=== PATIENT | female | born 1940 | race African-American/Black ===

== ENCOUNTER 2019-03-27 15:39 | Inpatient (IN) | payer MEDICARE, OTHER ==
--- NOTE | 2019-03-27 16:31 | ED Physician Chart ---
ED Chief Complaint/HPI - Patient Information Date Seen:: 03/27/19 Time Seen:: 15:40 Chief Complaint:: AMS History of Present Illness:: onset x 2 days of AMS, ALOC, and fever; no report of trauma, H/As, S/T, neck pain, C/P, SOB, Abd. Pain, A/N/V/D/C, chills, SIs, or urinary s/s Allergies:: Allergies Allergy/AdvReac Type Severity Reaction Status Date / Time No Known Allergies Allergy Verified 03/27/19 15:56 Vitals:: Vital Signs - 8 hr 03/27/19 15:41 Temp 97.8 F HR 88 RR 18 BP 137/82 O2 Sat % 100 Historian:: Patient, EMS Review:: Nurse's Note Reviewed, Old Chart Reviewed, EMS run form Reviewed ED Review of Systems - Review of Systems General/Constitutional: No fever, No chills, No weight loss, No weakness, No diaphoresis, No edema, No loss of appetite Skin: No skin lesions, No rash, No bruising Head: No headache, No light-headedness Eyes: No loss of vision, No pain, No diplopia ENT: No earache, No nasal drainage, No sore throat, No tinnitus Neck: No neck pain, No swelling, No thyromegaly, No stiffness, No mass noted Cardio Vascular: No chest pain, No palpitations, No PND, No orthopnea, No edema Pulmonary: No SOB, No cough, No sputum, No wheezing GI: No nausea, No vomiting, No diarrhea, No pain, No melena, No hematochezia, No constipation, No hematemesis G/U: No dysuria, No frequency, No hematuria, No nacturia Engagement Quality Consultant: No vaginal discharge, No abnormal vaginal bleed, No contraction Musculoskeletal: No bone or joint pain, No back pain, No muscle pain Endocrine: No polyuria, No polydipsia Psychiatric: Prior psych history, Depression, Anxiety, No suicidal ideation, No homicidal ideation, No auditory hallucination, No visual hallucination Hematopoietic: No bruising, No lymphadenopathy Allergic/Immuno: No urticaria, No angioedema Neurological: No syncope, No focal symptoms, No weakness, No paresthesia, No headache, No seizure, No dizziness, Confusion, No vertigo ED Past Medical History - Past Medical History Obtainable: Yes Past Medical History: HTN, DM, Dyslipidemia, Thyroid disorder, Dementia Family History: Diabetes Melitus, HTN Social History: Non Smoker, No Alcohol, No Drug Use, , Care Facility Surgical History: None Psychiatricy History: Depression, Dementia Medication: Reviewed Family Medical History - Family Member Mother History Unknown: Yes ED Physical Exam - Physical Examination General/Constitutional: Awake, Well-developed, well-nourished, Alert, No distress, GCS 15, Non-toxic appearing, Ambulatory Head: Atraumatic Eyes: Lids, conjuctiva normal, PERRL, EOMI Skin: Nl inspection, No rash, No skin lesions, No ecchymosis, Well hydrated, No lymphadenopathy ENMT: External ears, nose nl, TM canals nl, Nasal exam nl, Lips, teeth, gums nl , Oropharynx nl, Tonsils nl Neck: Nontender, Full ROM w/o pain, No JVD, No nuchal rigidity, No bruit, No mass, No stridor Respiratory: Nl effort/Exclusion, Clear to Auscultation, No Wheeze/Rhonchi/Rales Cardio Vascular: RRR, No murmur, gallop, rubs, NL S1 S2, Carotid/Femoral/Distal pulses equal bilaterally GI: No tenderness/rebounding/guarding, No organomegaly, No hernia, Normal BS's, Nondistended, No mass/bruits, No McBurney tenderness, Rectum exam nl : No CVA tenderness Extremities: No tenderness or effusion, Full ROM, normal strength in all extremities, No edema, Normal digits & nails Neuro/Psych: Alert/oriented, DTR's symmetric, Normal sensory exam, Normal motor strength, Judgement/insight normal, Mood normal, Normal gait, No focal deficits Misc: Normal back, No paraspinal tenderness ED Labs/Radiology/EKG Results - Lab Results Comments:: Reviewed - Radiology Results Comments:: CXR: NAD - EKG Interpretations EKG Time:: 16:41 Rate & Rhythm: 88; NSR Comments:: LAE; non-specific st-t changes ED Septic Shock - . Is Septic Shock (SBP<90, OR Lactate>4 mmol\L) present?: No - <6hrs of presentation: Vital Signs: Vital Signs - 8 hr 03/27/19 15:41 Temp 97.8 F HR 88 RR 18 BP 137/82 O2 Sat % 100 ED Reassessment (Disposition) - Reassessment Reassessment Condition:: Improved - Diagnosis Diagnosis:: ALOC; AMS; Elevated Lactic Acid; Lactic Acidosis; Hypercalcemia; Sepsis; Pancreatitis - Aftercare/Follow up Instructions Aftercare/Follow-Up Instructions:: Counseled pt regarding lab results/diagnosis & need follow up, Counseled pt & family regarding lab results/diagnosis & need follow up - Patient Disposition Discharge/Transfer:: Acute Care w/in this hosp Accepting Physician:: Dr. Cervantes Time Called:: 254 Time Responded:: 17:30 Admitted to:: Telemetry Spoke to:: Dr. Cervantes Admitting Medical Physician:: Dr. Cervantes Condition at Disposition:: Stable, Improved
[2019-03-27 16:44] LABS: HEMATOCRIT 34.2 % (41.0-60); HEMOGLOBIN 11.4 gm/dL (12-16); MEAN CELL VOLUME 87.2 fl (81-100); MEAN CORPUSCULAR HGB CONC 33.3 pg (28.0-36.0); PLATELET COUNT 285 Th/cmm (150-400); RED BLOOD COUNT 3.93 Mil/cmm (3.80-5.20); RED CELL DISTRIBUTION WIDTH 14.1 % (11.5-20.0); WHITE BLOOD COUNT 8.6 Th/cmm (4.8-10.8)
[2019-03-27 16:50] LABS: ALB/GLOB RATIO 1.3 (1.0-1.8); ALKALINE PHOSPHATASE 42 U/L (34-104); BILIRUBIN,TOTAL 0.3 mg/dL (0.3-1.0); BUN - UREA NITROGEN 24 mg/dL (7-25); CALCIUM SERUM 10.6 mg/dL (8.6-10.3); CARBON DIOXIDE 23.6 mEq/L (21.0-31.0); CHLORIDE 103 mEq/L (98-107); CREATININE - SERUM 0.9 mg/dL (0.6-1.2); CREATININE KINASE 27 U/L (30-223); GLUCOSE 76 mg/dL (70-105); POTASSIUM SERUM 4.6 mEq/L (3.5-5.1); SGOT 11 U/L (13-39); SGPT/ALT 9 U/L (7-52); SODIUM SERUM 139 mEq/L (136-145); TOTAL PROTEIN,SERUM 7.2 gm/dL (6.0-8.3)
[2019-03-27 16:50] LABS: INR 0.92 (0.5-1.4)
[2019-03-27] MEDS ORDERED: cefTRIAXone 1 GM in Sodium Chloride 0.9% 50 ML IV ONE (17:18)
[2019-03-27] MEDS ORDERED: Sodium Chloride 0.9% 1,000 ML IV ONE (17:19)
[2019-03-27 17:22] LABS: EOSINOPHIL 12 % (0-5); LYMPHOCYTE 33 % (20-50); MONOCYTE 4 % (2-10); NEUTROPHILS 51 % (40-80)
[2019-03-27 17:37] LABS: AMYLASE SERUM 115 U/L (29-103); LIPASE 142 U/L (11-82)
[2019-03-27 20:26] VITALS: BP 121/67
[2019-03-28 05:14] LABS: % BASOPHILS 0.4 % (0.0-2.0); % EOSINOPHILS 6.1 % (0.0-5.0); % LYMPHOCYTES 37.6 % (20.0-50.0); % NEUTROPHILS 49.9 % (40.0-80.0); EOSINOPHILE ABSOLUTE 0.4 Th/cmm (0.1-0.4); HEMATOCRIT 30.2 % (41.0-60); HEMOGLOBIN 9.8 gm/dL (12-16); LYMPHOCYTE ABSOLUTE 2.5 Th/cmm (1.5-3.0); MEAN CORPUSCULAR HEMOGLOBIN 28.6 pg (27.0-31.0); MEAN CORPUSCULAR HGB CONC 32.5 pg (28.0-36.0); MONOCYTE ABSOLUTE 0.4 Th/cmm (0.3-1.0); NEUTROPHILE ABSOLUTE 3.3 Th/cmm (1.8-8.0); PLATELET COUNT 247 Th/cmm (150-400); RED BLOOD COUNT 3.43 Mil/cmm (3.80-5.20); RED CELL DISTRIBUTION WIDTH 13.9 % (11.5-20.0)
[2019-03-28 05:29] LABS: ANION GAP 11.8 (7.0-16.0); BUN - UREA NITROGEN 18 mg/dL (7-25); CALCIUM SERUM 9.8 mg/dL (8.6-10.3); CARBON DIOXIDE 25.1 mEq/L (21.0-31.0); CHLORIDE 108 mEq/L (98-107); CHOLESTEROL 186 mg/dL (<200); CREATININE - SERUM 0.7 mg/dL (0.6-1.2); GLUCOSE 79 mg/dL (70-105); HDL -HIGH DENSITY LIPOPROTEIN 94 mg/dL (23-92); POTASSIUM SERUM 3.9 mEq/L (3.5-5.1); SODIUM SERUM 141 mEq/L (136-145); TRIGLYCERIDES 46 mg/dL (<150)
[2019-03-28 05:38] LABS: WHITE BLOOD COUNT 6.6 Th/cmm (4.8-10.8)
--- NOTE | 2019-03-28 08:43 | Diagnostic Imaging Report ---
CHEST X-RAY: AP view INDICATION: pain COMPARISON: None FINDINGS: There are mild chronic lung changes. There is no focal consolidation or pleural effusions The heart is normal in size. Atherosclerosis is noted. Degenerative changes of the spine are noted with scoliosis. IMPRESSION: Mild chronic lung changes. No focal consolidation identified. Atherosclerotic vascular disease.
--- NOTE | 2019-03-28 11:01 | History and Physical ---
History of Present Illness - HPI Chief Complaint: 78 y/o female patient was brought into ER due to x 2 days of Altered mental status, ALOC and Fever. HPI: 78 y/o female patient was admitted to [facility] due to x 2 days of Altered mental status, ALOC and Fever. Patient has history of Hypertension, Diabetes Mellitus, Dyslipidemia, Thyroid Disorder and Dementia. Patient was seen by ER assessment and a complete workup was done. Patient had a chest x-ray done which showed Mild Chronic lung changes and Atherosclerotic Vascular disease. Patient was diagnosed with ALOC, AMS, Elevated lactic acidosis, Hypercalcemia, Sepsis and Pancreatitis. Patient will have an ID consult and Psych consult. I will follow, treat and monitor patient. Patient will continue current treatment plan as ordered. Vital Signs: Last Vital Signs Temp 97.1 F 03/28/19 08:00 Pulse 69 03/28/19 08:00 Resp 18 03/28/19 09:00 BP 120/51 03/28/19 08:00 Pulse Ox 97 03/28/19 08:00 Past Medical History Cardiovascular: Report: HTN Pulmonary: Report: No Pertinent Hx GIFT MANAGER: Report: Dementia GI: Report: No Pertinent Hx Psych: Report: Depression, Other (Dementia.) Musculoskeletal: Report: No Pertinent Hx Rheumatologic: Report: No pertinent Hx Infectious Disease: Report: No Pertinent Hx Renal/: Report: No Pertinent Hx Endocrine: Report: Diabetes Dermatology: Report: No Pertinent Hx - Past Surgical History Past Surgical History: No pertinent Hx Family Medical History - Family Member Mother History Unknown: Yes Social History Smoke: No Alcohol: None Drugs: None Lives: Custodial Domestic Violence: Negative Health Maintenance Health Maintenance: Other (see chart.) - Medications Home Medications: Home Medication Medication Instructions Recorded Type Ascorbic Acid [Vitamin C] 1 tab PO DAILY 03/27/19 History Aspirin [Ecotrin] 81 mg PO DAILY 03/27/19 History Cranberry Fruit Extract [Cranberry] 1 cap PO DAILY 03/27/19 History Docusate Sodium [Colace] 1 cap PO DAILY 03/27/19 History Donepezil HCl [Aricept] 10 mg PO HS 03/27/19 History Ferrous Sulfate [Iron] 1 tab PO BID 03/27/19 History Glimepiride [Amaryl] 1 tab PO DAILY 03/27/19 History Levothyroxine Sodium [Levoxyl] 25 mcg PO DAILY 03/27/19 History Losartan Potassium [Cozaar] 1 tab PO DAILY 03/27/19 History Memantine [Namenda] 1 tab PO BID 03/27/19 History Metformin HCl [Fortamet] 1 tab PO BID 03/27/19 History Multivitamin [Animal Shapes 1 each PO DAILY 03/27/19 History Vitamins] Pioglitazone HCl [Actos] 1 tab PO DAILY 03/27/19 History Simvastatin [Zocor] 1 tab PO HS 03/27/19 History Tetrabenazine 0.5 mg PO DAILY 03/27/19 History Other Medications: Please see medication reconciliation sheet. - Allergies Allergies/Adverse Reactions: Allergies Allergy/AdvReac Type Severity Reaction Status Date / Time No Known Allergies Allergy Verified 03/27/19 15:56 Review of Systems - Review of Systems Review of Systems: 78 y/o female patient was admitted due to ALOC, AMS and Fever. Constitutional: Report: Fever Eyes: Report: No Significant ENT: Report: No Significant Respiratory: Report: No Significant Cardiovascular: Report: No Significant Gastrointestinal: Report: No Significant Genitourinary: Report: No Significant Musculoskeletal: Report: No Significant Skin: Report: No Significant Neurological: Report: Weakness, Confusion Physical Exam - Physical Exam HEENT: Report: Ears Nose Throat within normal limits Neck: Report: Within normal limits Cardiovascular Systems: Report: +s1/s2 noted Respiratory: Report: Breath Sounds are within normal limits Abdomen: Report: Non-tender to palpation Back: Report: Inspection of back is within normal limits. Extremities: Report: Non-tender to palpation. Skin: Report: Color of skin is within normal limits Neuro/Psych: Report: Depressed affect - Lab Results All Lab Results last 24 hours: Laboratory Results - last 24 hr 03/27/19 03/27/19 03/27/19 16:30 16:30 16:30 WBC 8.6 RBC 3.93 Hgb 11.4 L Hct 34.2 L MCV 87.2 MCH 29.0 MCHC Differential 33.3 RDW 14.1 Plt Count 285 MPV 7.9 Add Manual Diff YES Neutrophils % Lymphocytes % Monocytes % Eosinophils % Basophils % Neutrophils (Manual) 51 Lymphocytes 33 Monocytes 4 Eosinophils 12 H PT INR PTT (Actin FS) Sodium 139 Potassium 4.6 Chloride 103 Carbon Dioxide 23.6 Anion Gap 17.0 H BUN 24 Creatinine 0.9 Est GFR ( Amer) TNP Est GFR (Non-Af Amer) TNP BUN/Creatinine Ratio 26.7 Glucose 76 Whole Bld Lactic Acid 5.19 H* Calcium 10.6 H Total Bilirubin 0.3 AST 11 L ALT 9 Alkaline Phosphatase 42 Creatine Kinase 27 L Troponin I 0.01 Total Protein 7.2 Albumin 4.0 Globulin 3.2 Albumin/Globulin Ratio 1.3 Triglycerides Cholesterol LDL Cholesterol Direct HDL Cholesterol Amylase Lipase TSH 03/27/19 03/27/19 03/27/19 16:45 16:45 18:26 WBC RBC Hgb Hct MCV MCH MCHC Differential RDW Plt Count MPV Add Manual Diff Neutrophils % Lymphocytes % Monocytes % Eosinophils % Basophils % Neutrophils (Manual) Lymphocytes Monocytes Eosinophils PT 9.6 INR 0.92 PTT (Actin FS) 25.1 L Sodium Potassium Chloride Carbon Dioxide Anion Gap BUN Creatinine Est GFR ( Amer) Est GFR (Non-Af Amer) BUN/Creatinine Ratio Glucose Whole Bld Lactic Acid 5.56 H* Calcium Total Bilirubin AST ALT Alkaline Phosphatase Creatine Kinase Troponin I Total Protein Albumin Globulin Albumin/Globulin Ratio Triglycerides Cholesterol LDL Cholesterol Direct HDL Cholesterol Amylase 115 H Lipase 142 H TSH 03/28/19 03/28/19 03/28/19 04:30 04:30 04:30 WBC 6.6 D RBC 3.43 L Hgb 9.8 L Hct 30.2 L MCV 88.0 MCH 28.6 MCHC Differential 32.5 RDW 13.9 Plt Count 247 MPV 8.8 Add Manual Diff Neutrophils % 49.9 Lymphocytes % 37.6 Monocytes % 6.0 Eosinophils % 6.1 H Basophils % 0.4 Neutrophils (Manual) Lymphocytes Monocytes Eosinophils PT INR PTT (Actin FS) Sodium 141 Potassium 3.9 Chloride 108 H Carbon Dioxide 25.1 Anion Gap 11.8 BUN 18 Creatinine 0.7 Est GFR ( Amer) TNP Est GFR (Non-Af Amer) TNP BUN/Creatinine Ratio 25.7 Glucose 79 Whole Bld Lactic Acid Calcium 9.8 Total Bilirubin AST ALT Alkaline Phosphatase Creatine Kinase Troponin I Total Protein Albumin Globulin Albumin/Globulin Ratio Triglycerides 46 Cholesterol 186 LDL Cholesterol Direct 67 L HDL Cholesterol 94 H Amylase Lipase TSH 1.12 - Assessment Assessment: ALOC. AMS. Elevated lactic acidosis. Hypercalcemia. Sepsis. Pancreatitis. Hypertension. Diabetes Mellitus. Dyslipidemia. Thyroid Disorder. Dementia. - Plan Plan: Continuation of care. Monitor Labs. Continue present meds as directed. Monitor vitals, Continue BP meds as directed. Accu-check daily, Continue DM meds as directed. Monitor Diet/Nutritional support. Psych management per Psych. Pain Management. Fall precaution, frequent nursing rounds, and as needed restraints to prevent fall. Safety precaution. Supportive care. Continue collaborating with consulting specialists, case management and nursing team. Will Monitor patient and continue current treatment plan as ordered.
[2019-03-28] MEDS: cefTRIAXone 1 GM in Sodium Chloride 0.9% 50 ML IV SCH (17:22)
[2019-03-28] MEDS: Ferrous Sulfate 325 MG TAB PO SCH (17:26)
[2019-03-28] MEDS ORDERED: Dextrose 50% 50 mL Abboject IVP PRN (17:52)
[2019-03-28] MEDS ORDERED: GLUCAGON HCl 1 MG KIT IM PRN (17:52)
[2019-03-28] MEDS: INSULIN LISPRO SLIDING SCALE 100 UNITS/ML UNIT SUBQ SCH (20:35)
[2019-03-29] MEDS: INSULIN LISPRO SLIDING SCALE 100 UNITS/ML UNIT SUBQ SCH ×4 (06:39→20:25)
[2019-03-29] MEDS: Multivitamin Tab PO SCH (08:28)
[2019-03-29] MEDS: Levothyroxine 0.025 Mg Tab PO SCH (08:28)
[2019-03-29] MEDS: Ferrous Sulfate 325 MG TAB PO SCH ×2 (08:28→17:22)
[2019-03-29] MEDS ORDERED: TETRABENAZINE PO SCH (09:00)
[2019-03-29] MEDS ORDERED: CRANBERRY FRUIT EXTRACT PO SCH (09:00)
--- NOTE | 2019-03-29 12:35 | Internal Medicine Prog Note ---
Internal Medicine Subjective - Subjective Service Date: 03/29/19 Patient seen and examined:: with staff Patient is:: awake Per staff patient has:: tolerating meds Internal Medicine Objective - Results Result Diagrams: 03/28/19 04:30 03/28/19 04:30 Recent Labs: Laboratory Last Values WBC 6.6 Th/cmm (4.8-10.8) D 03/28/19 04:30 RBC 3.43 Mil/cmm (3.80-5.20) L 03/28/19 04:30 Hgb 9.8 gm/dL (12-16) L 03/28/19 04:30 Hct 30.2 % (41.0-60) L 03/28/19 04:30 MCV 88.0 fl (81-100) 03/28/19 04:30 MCH 28.6 pg (27.0-31.0) 03/28/19 04:30 MCHC Differential 32.5 pg (28.0-36.0) 03/28/19 04:30 RDW 13.9 % (11.5-20.0) 03/28/19 04:30 Plt Count 247 Th/cmm (150-400) 03/28/19 04:30 MPV 8.8 fl 03/28/19 04:30 Add Manual Diff YES 03/27/19 16:30 Neutrophils % 49.9 % (40.0-80.0) 03/28/19 04:30 Lymphocytes % 37.6 % (20.0-50.0) 03/28/19 04:30 Monocytes % 6.0 % (2.0-10.0) 03/28/19 04:30 Eosinophils % 6.1 % (0.0-5.0) H 03/28/19 04:30 Basophils % 0.4 % (0.0-2.0) 03/28/19 04:30 Neutrophils (Manual) 51 % (40-80) 03/27/19 16:30 Lymphocytes 33 % (20-50) 03/27/19 16:30 Monocytes 4 % (2-10) 03/27/19 16:30 Eosinophils 12 % (0-5) H 03/27/19 16:30 PT 9.6 SECONDS (9.5-11.5) 03/27/19 16:45 INR 0.92 (0.5-1.4) 03/27/19 16:45 PTT (Actin FS) 25.1 SECONDS (26.0-38.0) L 03/27/19 16:45 Sodium 141 mEq/L (136-145) 03/28/19 04:30 Potassium 3.9 mEq/L (3.5-5.1) 03/28/19 04:30 Chloride 108 mEq/L (98-107) H 03/28/19 04:30 Carbon Dioxide 25.1 mEq/L (21.0-31.0) 03/28/19 04:30 Anion Gap 11.8 (7.0-16.0) 03/28/19 04:30 BUN 18 mg/dL (7-25) 03/28/19 04:30 Creatinine 0.7 mg/dL (0.6-1.2) 03/28/19 04:30 Est GFR ( Amer) TNP 03/28/19 04:30 Est GFR (Non-Af Amer) TNP 03/28/19 04:30 BUN/Creatinine Ratio 25.7 03/28/19 04:30 Glucose 79 mg/dL (70-105) 03/28/19 04:30 POC Glucose 157 MG/DL (70 - 105) H 03/29/19 12:19 Whole Bld Lactic Acid 5.56 mmol/L (0.60-1.99) H* 03/27/19 18:26 Calcium 9.8 mg/dL (8.6-10.3) 03/28/19 04:30 Total Bilirubin 0.3 mg/dL (0.3-1.0) 03/27/19 16:30 AST 11 U/L (13-39) L 03/27/19 16:30 ALT 9 U/L (7-52) 03/27/19 16:30 Alkaline Phosphatase 42 U/L (34-104) 03/27/19 16:30 Creatine Kinase 27 U/L (30-223) L 03/27/19 16:30 Troponin I 0.01 ng/mL (0.01-0.05) 03/27/19 16:30 Total Protein 7.2 gm/dL (6.0-8.3) 03/27/19 16:30 Albumin 4.0 gm/dL (3.7-5.3) 03/27/19 16:30 Globulin 3.2 gm/dL 03/27/19 16:30 Albumin/Globulin Ratio 1.3 (1.0-1.8) 03/27/19 16:30 Triglycerides 46 mg/dL (<150) 03/28/19 04:30 Cholesterol 186 mg/dL (<200) 03/28/19 04:30 LDL Cholesterol Direct 67 mg/dL (75-193) L 03/28/19 04:30 HDL Cholesterol 94 mg/dL (23-92) H 03/28/19 04:30 Amylase 115 U/L (29-103) H 03/27/19 16:45 Lipase 142 U/L (11-82) H 03/27/19 16:45 TSH 1.12 uIU/ml (0.34-5.60) 03/28/19 04:30 - Physical Exam Vitals and I&O: Vital Signs Temp 98.2 F 03/29/19 08:00 Pulse 62 03/29/19 08:18 Resp 18 03/29/19 09:00 BP 98/51 03/29/19 08:18 Pulse Ox 94 03/29/19 08:00 Intake & Output 03/28/19 03/29/19 03/29/19 18:59 06:59 18:59 Intake Total 720 Balance 720 Weight (lbs) 107 lb 107 lb Intake: Oral 720 Other: # Voids 3 2 # Bowel Movements 1 Weight Source Bedscale Bedscale Active Medications: Current Medications Ascorbic Acid (Vitamin C) 500 mg PO DAILY [facility] Stop: 05/28/19 08:59 Last Admin: 03/29/19 08:28 Dose: 500 mg Aspirin (Ecotrin) 81 mg PO DAILY [facility] Stop: 05/28/19 08:59 Last Admin: 03/29/19 08:29 Dose: 81 mg Dextrose (D50w) 50 ml IVP PRN PRN PRN Reason: Blood Glucose less than 70 Stop: 05/27/19 17:51 Dextrose (Glutose 40%) 18.75 gm PO PRN PRN PRN Reason: Blood Glucose less than 70 Stop: 05/27/19 17:51 Docusate Sodium (Colace) 100 mg PO DAILY [facility] Stop: 05/28/19 08:59 Last Admin: 03/29/19 08:29 Dose: 100 mg Donepezil HCl (Aricept) 10 mg PO HS [facility] Stop: 05/27/19 20:59 Last Admin: 03/28/19 20:35 Dose: 10 mg Ferrous Sulfate (Iron) 325 mg PO BID [facility] Stop: 05/27/19 16:59 Last Admin: 03/29/19 08:28 Dose: 325 mg Glimepiride (Amaryl) 4 mg PO DAILY [facility] Stop: 05/28/19 08:59 Last Admin: 03/29/19 08:28 Dose: 4 mg Glucagon (Glucagen) 1 mg IM PRN PRN PRN Reason: Blood Glucose less than 70 Stop: 05/27/19 17:51 Ceftriaxone Sodium 1 gm/ (Sodium Chloride) 50 mls @ 100 mls/hr IV Q24HR [facility] Stop: 05/27/19 17:59 Last Admin: 03/28/19 17:22 Dose: 100 mls/hr Insulin Human Lispro (Humalog Insulin Sliding Scale) 0 units SUBQ ACHS [facility]; Protocol Stop: 05/27/19 20:59 Last Admin: 03/29/19 12:30 Dose: 2 units Levothyroxine Sodium (Synthroid) 0.025 mg PO DAILY [facility] Stop: 05/28/19 08:59 Last Admin: 03/29/19 08:28 Dose: 0.025 mg Losartan Potassium (Cozaar) 50 mg PO DAILY [facility] Stop: 05/28/19 08:59 Last Admin: 03/29/19 08:18 Dose: Not Given Memantine (Namenda) 10 mg PO BID [facility] Stop: 05/27/19 16:59 Last Admin: 03/29/19 08:28 Dose: 10 mg Metformin HCl (Glucophage) 1,000 mg PO BID [facility] Stop: 05/27/19 16:59 Last Admin: 03/29/19 08:33 Dose: 1,000 mg Miscellaneous (Tetrabenazine [Tetrabenazine]) 0.5 mg PO DAILY [facility] Stop: 05/28/19 08:59 Multivitamins/Vitamin C (Theragran) 1 tab PO DAILY [facility] Stop: 05/28/19 08:59 Last Admin: 03/29/19 08:28 Dose: 1 tab Pioglitazone HCl (Actos) 30 mg PO DAILY [facility] Stop: 05/28/19 08:59 Last Admin: 03/29/19 08:28 Dose: 30 mg Simvastatin (Zocor) 10 mg PO HS ANUEL; Protocol Stop: 05/27/19 20:59 Last Admin: 03/28/19 20:35 Dose: 10 mg General: weak HEENT: NC/AT, PERRLA Neck: Supple Lungs: CTAB Cardiovascular: RRR, Normal S1, Normal S2, without murmur Abdomen: soft, non-tender, non-distended, positive bowel sound Neurological: alert Internal Medicine Assmt/Plan - Assessment Assessment: ALOC. AMS. Elevated lactic acidosis. Hypercalcemia. Sepsis. Pancreatitis. Hypertension. Diabetes Mellitus. Dyslipidemia. Thyroid Disorder. Dementia. - Plan Plan: cont ivabx am labs continue current plan of care
[2019-03-29 14:12] LABS: URINE SOURCE MIDSTREAM
[2019-03-29 14:15] LABS: URINE BILIRUBIN NEGATIVE (NEGATIVE); URINE BLOOD NEGATIVE (NEGATIVE); URINE GLUCOSE (UA) NEGATIVE (NEGATIVE); URINE KETONE 15 mg/dL (NEGATIVE); URINE LEUKOCYTE ESTERASE NEGATIVE (NEGATIVE); URINE MICROSCOPIC INDICATED? YES; URINE NITRATE NEGATIVE (NEGATIVE); URINE PROTEIN TRACE mg/dL (NEGATIVE); URINE UROBILINOGEN 0.2 E.U./dL (0.2 - 1.0)
[2019-03-29 14:22] LABS: URINE CLARITY CLEAR (CLEAR); URINE COLOR YELLOW; URINE RBC 0-2 /hpf (0-5); URINE WBC 0-2 /hpf (0-5)
[2019-03-29 14:23] LABS: URINE BACTERIA FEW /hpf (NONE SEEN); URINE EPITHELIAL CELLS FEW /lpf (FEW)
[2019-03-29] MEDS ORDERED: Sodium Chloride 0.9% 1,500 ML IV ONE (15:30)
[2019-03-29] MEDS: cefTRIAXone 1 GM in Sodium Chloride 0.9% 50 ML IV SCH (18:31)
[2019-03-30 05:07] LABS: HEMATOCRIT 30.5 % (41.0-60); HEMOGLOBIN 10.2 gm/dL (12-16); MEAN CELL VOLUME 87.4 fl (81-100); MEAN CORPUSCULAR HEMOGLOBIN 29.3 pg (27.0-31.0); MEAN CORPUSCULAR HGB CONC 33.6 pg (28.0-36.0); PLATELET COUNT 240 Th/cmm (150-400); RED BLOOD COUNT 3.49 Mil/cmm (3.80-5.20); RED CELL DISTRIBUTION WIDTH 14.1 % (11.5-20.0); WHITE BLOOD COUNT 9.4 Th/cmm (4.8-10.8)
[2019-03-30 05:16] LABS: % BASOPHILS 0.5 % (0.0-2.0); % EOSINOPHILS 4.9 % (0.0-5.0); % LYMPHOCYTES 26.9 % (20.0-50.0); % MONOCYTES 6.1 % (2.0-10.0)
[2019-03-30 05:17] LABS: % NEUTROPHILS 61.6 % (40.0-80.0); EOSINOPHILE ABSOLUTE 0.2 Th/cmm (0.1-0.4); LYMPHOCYTE ABSOLUTE 1.2 Th/cmm (1.5-3.0); MONOCYTE ABSOLUTE 0.3 Th/cmm (0.3-1.0); NEUTROPHILE ABSOLUTE 2.9 Th/cmm (1.8-8.0)
[2019-03-30 05:34] LABS: ANION GAP 13.2 (7.0-16.0); BUN - UREA NITROGEN 20 mg/dL (7-25); CALCIUM SERUM 9.7 mg/dL (8.6-10.3); CARBON DIOXIDE 22.7 mEq/L (21.0-31.0); CHLORIDE 110 mEq/L (98-107); CREATININE - SERUM 0.9 mg/dL (0.6-1.2); GLUCOSE 93 mg/dL (70-105); POTASSIUM SERUM 3.9 mEq/L (3.5-5.1); SODIUM SERUM 142 mEq/L (136-145)
[2019-03-30] MEDS: INSULIN LISPRO SLIDING SCALE 100 UNITS/ML UNIT SUBQ SCH ×4 (06:32→20:08)
[2019-03-30] MEDS: Ferrous Sulfate 325 MG TAB PO SCH ×2 (08:23→16:09)
[2019-03-30] MEDS: Levothyroxine 0.025 Mg Tab PO SCH (08:23)
[2019-03-30] MEDS: Multivitamin Tab PO SCH (08:24)
--- NOTE | 2019-03-30 13:42 | Diagnostic Imaging Report ---
Ultrasound abdomen HISTORY: Elevated amylase and lipase COMPARISON: None Technique: Sonography of the abdomen was performed in multiple planes. FINDINGS: The liver demonstrates normal echogenicity with no evidence of focal lesions. The liver measures 15.6 cm. The gallbladder was not visualized. The common bile measures 3 mm. Evaluation of the pancreas is limited due to bowel gas. The right kidney measures 9.4 x 4.1 cm. No evidence of focal lesions or hydronephrosis. The left kidney measures 8.1 x 2.6 cm. There is a 1.4 cm superior pole right renal lesion probably a cyst. No hydronephrosis. The spleen measures 8.1 cm. Atherosclerosis is noted. IMPRESSION: IMPRESSION: The gallbladder was not visualized. Please correlate clinically as this may be due to gallbladder contraction of gallbladder removal. Suboptimal assessment of pancreas. CT would further clarify. 1.4 cm superior pole right renal lesion probably a cyst. Atherosclerotic vascular disease.
--- NOTE | 2019-03-30 16:54 | Consultation ---
DATE OF CONSULTATION: 03/30/2019 REQUESTING PHYSICIAN: Dr. Cervantes. REASON FOR CONSULTATION: Elevated lipase. Thank you for asking us to see this patient in consultation. HISTORY OF PRESENT ILLNESS: This is a 78-year-old female with a history of hypertension and dementia, who presented with altered level of consciousness, dehydration and fever. The patient had workup, which included an elevated lipase to about little bit less than 2 times upper limit of normal as well as an amylase that was just barely above normal limits and approximately 142 lipase respectively. The patient presents relatively asymptomatic. She is not complaining of any abdominal pain. When she did arrive to the hospital, her lactic acid was elevated at 4.96, which has subsequently improved down to 0.54 since she has been here on supportive care, IV fluids as well as empiric antibiotics. She had an abdominal ultrasound performed, which showed a contracted gallbladder versus cholecystectomy. PAST MEDICAL HISTORY: Dementia, history of cerebrovascular accident, diabetes, and hyperlipidemia. FAMILY HISTORY: Unable to obtain given the patient's current state. MEDICATIONS: Have been reviewed. SOCIAL HISTORY: Unable to obtain given the patient's current state. PHYSICAL EXAMINATION: VITAL SIGNS: Blood pressure of 120/51, pulse of 69, respiratory rate of 18, temperature is 97.1, satting 97% on room air. GENERAL: In no acute distress. HEENT: Normocephalic, atraumatic. PERRLA positive. LUNGS: Clear bilaterally. No wheezes, rales or rhonchi. HEART: Regular rate and rhythm, normal S1, S2. ABDOMEN: Soft, nontender. Bowel sounds are positive. EXTREMITIES: Show no lower extremity edema. PSYCHIATRIC: Alert, oriented x 1. NEUROLOGIC: Grossly intact. LABORATORY DATA: Hemoglobin of 10.2, MCV of 87.4. Sodium 142, potassium 3.9, chloride 110, CO2 of 22.7. BUN is 22, creatinine is 0.9. Lipase on admission was 142. Total bilirubin was 0.3. IMAGING: Abdominal ultrasound as stated in HPI. ASSESSMENT: This is a 78-year-old female with history of dementia who presents for altered level of consciousness, dehydration and elevated lactic acid. 1. Elevated lipase. 2. Dehydration. 3. Altered level of consciousness, toxic metabolic encephalopathy, now improved. 4. History of dementia. PLAN: Most likely, the patient presented with constellation of symptoms, findings of dehydration, toxic metabolic encephalopathy from multiple possible various causes including possible unknown infection or electrolyte disturbances or poor p.o. intake. Apparently, she looks and appears to be relatively asymptomatic. Her lipase was not more than 2 times a greater than the upper limit of normal and she did not have any abdominal pain, thus making pancreatitis less likely have a diagnosis here. I would not recommend any CT scan at this time as she is asymptomatic; however, if she develops any recurrence of abdominal pain symptoms, then certainly would recommend a CT is the next step with oral and IV contrast. For now, we just recommend supportive care and management. Continue with oral feedings and appropriate disposition as deemed by the primary care doctor. Thank you for allowing us to participate in this patient's care. [facility]# [id number]
[2019-03-30] MEDS: cefTRIAXone 1 GM in Sodium Chloride 0.9% 50 ML IV SCH (17:00)
--- NOTE | 2019-03-30 17:24 | Internal Medicine Prog Note ---
Internal Medicine Subjective - Subjective Service Date: 03/30/19 Patient is:: awake Per staff patient has:: tolerating meds Internal Medicine Objective - Results Result Diagrams: 03/30/19 04:10 03/30/19 04:10 Recent Labs: Laboratory Last Values WBC 9.4 Th/cmm (4.8-10.8) 03/30/19 04:10 RBC 3.49 Mil/cmm (3.80-5.20) L 03/30/19 04:10 Hgb 10.2 gm/dL (12-16) L 03/30/19 04:10 Hct 30.5 % (41.0-60) L 03/30/19 04:10 MCV 87.4 fl (81-100) 03/30/19 04:10 MCH 29.3 pg (27.0-31.0) 03/30/19 04:10 MCHC Differential 33.6 pg (28.0-36.0) 03/30/19 04:10 RDW 14.1 % (11.5-20.0) 03/30/19 04:10 Plt Count 240 Th/cmm (150-400) 03/30/19 04:10 MPV 8.1 fl 03/30/19 04:10 Add Manual Diff YES 03/27/19 16:30 Neutrophils % 61.6 % (40.0-80.0) 03/30/19 04:10 Lymphocytes % 26.9 % (20.0-50.0) 03/30/19 04:10 Monocytes % 6.1 % (2.0-10.0) 03/30/19 04:10 Eosinophils % 4.9 % (0.0-5.0) 03/30/19 04:10 Basophils % 0.5 % (0.0-2.0) 03/30/19 04:10 Neutrophils (Manual) 51 % (40-80) 03/27/19 16:30 Lymphocytes 33 % (20-50) 03/27/19 16:30 Monocytes 4 % (2-10) 03/27/19 16:30 Eosinophils 12 % (0-5) H 03/27/19 16:30 PT 9.6 SECONDS (9.5-11.5) 03/27/19 16:45 INR 0.92 (0.5-1.4) 03/27/19 16:45 PTT (Actin FS) 25.1 SECONDS (26.0-38.0) L 03/27/19 16:45 Sodium 142 mEq/L (136-145) 03/30/19 04:10 Potassium 3.9 mEq/L (3.5-5.1) 03/30/19 04:10 Chloride 110 mEq/L (98-107) H 03/30/19 04:10 Carbon Dioxide 22.7 mEq/L (21.0-31.0) 03/30/19 04:10 Anion Gap 13.2 (7.0-16.0) 03/30/19 04:10 BUN 20 mg/dL (7-25) 03/30/19 04:10 Creatinine 0.9 mg/dL (0.6-1.2) 03/30/19 04:10 Est GFR ( Amer) TNP 03/30/19 04:10 Est GFR (Non-Af Amer) TNP 03/30/19 04:10 BUN/Creatinine Ratio 22.2 03/30/19 04:10 Glucose 93 mg/dL (70-105) 03/30/19 04:10 POC Glucose 144 MG/DL (70 - 105) H 03/30/19 16:13 Whole Bld Lactic Acid 0.54 mmol/L (0.60-1.99) L 03/30/19 04:10 Calcium 9.7 mg/dL (8.6-10.3) 03/30/19 04:10 Total Bilirubin 0.3 mg/dL (0.3-1.0) 03/27/19 16:30 AST 11 U/L (13-39) L 03/27/19 16:30 ALT 9 U/L (7-52) 03/27/19 16:30 Alkaline Phosphatase 42 U/L (34-104) 03/27/19 16:30 Creatine Kinase 27 U/L (30-223) L 03/27/19 16:30 Troponin I 0.01 ng/mL (0.01-0.05) 03/27/19 16:30 Total Protein 7.2 gm/dL (6.0-8.3) 03/27/19 16:30 Albumin 4.0 gm/dL (3.7-5.3) 03/27/19 16:30 Globulin 3.2 gm/dL 03/27/19 16:30 Albumin/Globulin Ratio 1.3 (1.0-1.8) 03/27/19 16:30 Triglycerides 46 mg/dL (<150) 03/28/19 04:30 Cholesterol 186 mg/dL (<200) 03/28/19 04:30 LDL Cholesterol Direct 67 mg/dL (75-193) L 03/28/19 04:30 HDL Cholesterol 94 mg/dL (23-92) H 03/28/19 04:30 Amylase 115 U/L (29-103) H 03/27/19 16:45 Lipase 142 U/L (11-82) H 03/27/19 16:45 TSH 1.12 uIU/ml (0.34-5.60) 03/28/19 04:30 Urine Source MIDSTREAM 03/29/19 14:00 Urine Color YELLOW 03/29/19 14:00 Urine Clarity CLEAR (CLEAR) 03/29/19 14:00 Urine pH 6.0 (4.6 - 8.0) 03/29/19 14:00 Ur Specific [place] 1.020 (1.005-1.030) 03/29/19 14:00 Urine Protein TRACE mg/dL (NEGATIVE) 03/29/19 14:00 Urine Glucose (UA) NEGATIVE mg/dL (NEGATIVE) 03/29/19 14:00 Urine Ketones 15 mg/dL (NEGATIVE) H 03/29/19 14:00 Urine Blood NEGATIVE (NEGATIVE) 03/29/19 14:00 Urine Nitrate NEGATIVE (NEGATIVE) 03/29/19 14:00 Urine Bilirubin NEGATIVE (NEGATIVE) 03/29/19 14:00 Urine Urobilinogen 0.2 E.U./dL (0.2 - 1.0) 03/29/19 14:00 Ur Leukocyte Esterase NEGATIVE (NEGATIVE) 03/29/19 14:00 Urine RBC 0-2 /hpf (0-5) 03/29/19 14:00 Urine WBC 0-2 /hpf (0-5) 03/29/19 14:00 Ur Epithelial Cells FEW /lpf (FEW) 03/29/19 14:00 Urine Bacteria FEW /hpf (NONE SEEN) 03/29/19 14:00 - Physical Exam Vitals and I&O: Vital Signs Temp 97.6 F 03/30/19 16:31 Pulse 64 03/30/19 16:31 Resp 18 03/30/19 16:31 BP 102/66 03/30/19 16:31 Pulse Ox 99 03/30/19 16:31 Intake & Output 03/29/19 03/30/19 03/30/19 18:59 06:59 18:59 Intake Total 720 110 Balance 720 110 Weight (lbs) 107 lb 107 lb Intake: Intake, IV Amount 50 cefTRIAXone 1 gm In 50 Sodium Chloride 0.9% 50 ml @ 100 mls/hr IV Q24HR [facility] Rx#:[id number] Oral 720 60 Other: # Voids 4 3 # Bowel Movements 1 Weight Source Bedscale Bedscale Active Medications: Current Medications Ascorbic Acid (Vitamin C) 500 mg PO DAILY [facility] Stop: 05/28/19 08:59 Last Admin: 03/30/19 08:23 Dose: Not Given Aspirin (Ecotrin) 81 mg PO DAILY [facility] Stop: 05/28/19 08:59 Last Admin: 03/30/19 08:23 Dose: Not Given Dextrose (D50w) 50 ml IVP PRN PRN PRN Reason: Blood Glucose less than 70 Stop: 05/27/19 17:51 Dextrose (Glutose 40%) 18.75 gm PO PRN PRN PRN Reason: Blood Glucose less than 70 Stop: 05/27/19 17:51 Docusate Sodium (Colace) 100 mg PO DAILY [facility] Stop: 05/28/19 08:59 Last Admin: 03/30/19 08:23 Dose: Not Given Donepezil HCl (Aricept) 10 mg PO HS [facility] Stop: 05/27/19 20:59 Last Admin: 03/29/19 20:26 Dose: 10 mg Ferrous Sulfate (Iron) 325 mg PO BID [facility] Stop: 05/27/19 16:59 Last Admin: 03/30/19 16:09 Dose: 325 mg Glimepiride (Amaryl) 4 mg PO DAILY [facility] Stop: 05/28/19 08:59 Last Admin: 03/30/19 08:23 Dose: Not Given Glucagon (Glucagen) 1 mg IM PRN PRN PRN Reason: Blood Glucose less than 70 Stop: 05/27/19 17:51 Ceftriaxone Sodium 1 gm/ (Sodium Chloride) 50 mls @ 100 mls/hr IV Q24HR [facility] Stop: 05/27/19 17:59 Last Admin: 03/30/19 17:00 Dose: 100 mls/hr Insulin Human Lispro (Humalog Insulin Sliding Scale) 0 units SUBQ ACHS [facility]; Protocol Stop: 05/27/19 20:59 Last Admin: 03/30/19 16:17 Dose: Not Given Levothyroxine Sodium (Synthroid) 0.025 mg PO DAILY [facility] Stop: 05/28/19 08:59 Last Admin: 03/30/19 08:23 Dose: Not Given Losartan Potassium (Cozaar) 50 mg PO DAILY [facility] Stop: 05/28/19 08:59 Last Admin: 03/30/19 08:23 Dose: Not Given Memantine (Namenda) 10 mg PO BID [facility] Stop: 05/27/19 16:59 Last Admin: 03/30/19 16:09 Dose: 10 mg Metformin HCl (Glucophage) 1,000 mg PO BID [facility] Stop: 05/27/19 16:59 Last Admin: 03/30/19 16:09 Dose: 1,000 mg Miscellaneous (Tetrabenazine [Tetrabenazine]) 0.5 mg PO DAILY [facility] Stop: 05/28/19 08:59 Multivitamins/Vitamin C (Theragran) 1 tab PO DAILY [facility] Stop: 05/28/19 08:59 Last Admin: 03/30/19 08:24 Dose: Not Given Pioglitazone HCl (Actos) 30 mg PO DAILY [facility] Stop: 05/28/19 08:59 Last Admin: 03/30/19 08:24 Dose: Not Given Simvastatin (Zocor) 10 mg PO HS [facility]; Protocol Stop: 05/27/19 20:59 Last Admin: 03/29/19 20:26 Dose: 10 mg General: weak HEENT: NC/AT, PERRLA Neck: Supple Lungs: CTAB Cardiovascular: RRR, Normal S1, Normal S2, without murmur Abdomen: soft, non-tender, non-distended, positive bowel sound Neurological: alert Internal Medicine Assmt/Plan - Assessment Assessment: ALOC. AMS. Elevated lactic acidosis. Hypercalcemia. Sepsis. Pancreatitis. Hypertension. Diabetes Mellitus. Dyslipidemia. Thyroid Disorder. Dementia. - Plan Plan: cont ivabx am labs continue current plan of care Nutritional Asmnt/Malnutr-PDOC - Dietary Evaluation Malnutrition Findings (Please click <Entered> for more info): Nutritional Asmnt/Malnutrition Start: 03/30/19 15: 44 Text: Status: Complete Freq: Protocol: Document 03/30/19 15:45 ANGELICA (Rec: 03/30/19 15:51 ANGELICA [email or web address]) Nutritional Asmnt/Malnutrition Patient General Information Nutritional Screening Moderate Risk Diagnosis SEPSIS, PANCREATITIS Pertinent Medical Hx/Surgical Hx HTN, DM, CAD, DYSLIPIDEMIA, THYROID DISORDER, DEMENTIA Subjective Information PT IS A 78 YEAR OLD FEMALE ADMITTED ON 03/27 D/T ALOC X2 DAYS WITH FEVER. HT: 54 WT: 107 LB ( 48.64 KG) BMI: 18.37 (NORMAL) GI: WNL, SOFT, NON-TENDER BM: 03/30 X 1 I/O: 780/NOT NOTED SKIN: WARM, DRY, ELASTIC, INTACT ELLI: 14 DIET ORDER: CCHO 60GM, CARDIAC , MECHANICAL SOFT ESTIMATED ENERGY NEEDS: ( GERIATRIC, SEPSIS) [id number] KCALS (30-35 KCALS/ KG) 73-97 G PRO (1.5-2.0 G/KG) 6955-8978 ML (30-40 ML/KG) PT WAS NPO D/T ABDOMEN ULTRASOUND THIS MORNING AND HAS SINCE BEEN CHANGED TO A CCHO 60GM, CARDIAC, MECHANICAL SOFT DIET, SHE ATE 50% OF HER MEALS 03/27-03/28. DIETARY IS CURRENTLY PROVIDING AN ESTIMATED 2000 KCALS AND 140 GM PRO, PER PT PO INTAKE, THIS IS PROVIDING AN ESTIMATED 1000 KCALS AND 70 GM PRO TO MEET 68% KCAL AND 96% PRO NEEDS-ADEQUATE. Current Diet Order/ Nutrition Support CCHO 60GM, CARDIAC, MECHANICAL SOFT Pertinent Medications VIT C, D50W (PRN), GLUTOSE 40% (PRN), COLACE, FERROUS SULFATE, GLUCAGON (PRN), INS- SS, SYNTHROID, COZAAR, GLUCOPHAGE, THEREGRAN, ACTOS, ZOCOR Pertinent Labs 03/30: HGB/HCT 10.2/30.5, WHL BLD LAC ACID 0.54 POC GLUCOSE (LAST 24 HOURS): 148, 181,100,179 Nutritional Hx/Data Height 5 ft 4 in Height (Calculated Centimeters) 162.6 Current Weight (lbs) 107 lb Weight (Calculated Kilograms) 48.5 Weight (Calculated Grams) 17414.4 [place] Body Weight 120 % [place] Body Weight 89 Body Mass Index (BMI) 18.3 Weight Status Approriate GI Symptoms GI Symptoms None Last BM 03/30 X 1 Skin Integrity/Comment: WARM, DRY, ELASTIC, INTACT ELLI: 14 Current %PO Fair (50-74%) Estimated Nutritional Goals BEE in Kcals: Using Current wt Calories/Kcals/Kg 30-35 Kcals Calculated 5455-5209 Protein: Using Current wt Protein g/k.5-2.0 Protein Calculated 73-97 Fluid: ml 4781-1417 ML (30-40 ML/KG) Nutritional Problem 2. Problem Problem ALTERED NUTRITION RELATED LABS Etiology R/T ENDOCRINE DYSFUNCTION AND MEDICAL CONDITION(SEPSIS) Signs/Symptoms: AEB HX DM AND POC GLUCOSE ( LAST 24 HOURS): 148, 181,100, 179 1. Problem Problem INCREASED ENERGY AND PROTEIN NEEDS Etiology R/T INCREASED METABOLISM/ CATABOLIC STATE Signs/Symptoms: AEB DX OF SEPSIS Malnutrition Related to Morbid Obesity Malnutrition related to morbid obesity No Intervention/Recommendation Comments [facility], CARDIAC, MECHANICAL SOFT DIET ORDERED. Expected Outcomes/Goals Expected Outcomes/Goals 1. PO INTAKE TO MEET > 75% OF NUTRITIONAL NEEDS. 2. NUTRITION RELATED LABS TO TREND WNL IN 3-5 DAYS. 3. MONITOR PO INTAKE, WT, NUTRITION RELATED LABS AND SKIN INTEGRITY. 4. F/U MODERATE RISK IN 3-5 DAYS, 04/02-04/04
--- NOTE | 2019-03-30 22:44 | Consultation ---
DATE OF CONSULTATION: 03/30/2019 HISTORY OF PRESENT ILLNESS: Patient is 78-year-old. The patient has altered mentation. The patient more confused than usual, lethargic. Somewhat more awake, alert now talking, but still very confused. PAST MEDICAL HISTORY: Dementia. The patient with hypertension, diabetes, hyperlipidemia. The patient has history of psychiatric problem. Abnormal movements of the face. PAST SURGICAL HISTORY: None recently. MEDICATIONS: As per reconciliation. Here, the patient is on aspirin 81, Rocephin, Aricept, insulin, levothyroxine, losartan, memantine, metformin, Actos and simvastatin. REVIEW OF SYSTEMS: Twelve point negative except for above. PHYSICAL EXAMINATION: VITAL SIGNS: Temperature 96.3, blood pressure 110/62, pulse is 68. NECK: Supple. No neck bruits. Normal heart sounds. LUNGS: Clear. NEUROLOGIC: The patient is awake, alert. She gives me her name. She did not know even her age. She had difficulty actually naming simple objects such as pen and glasses. The patient unable to give me what day of month or year. Recall is essentially zero out of 3. Pupils react to light. Full eye movements. Face, she has some abnormal movements of the face, tongue and lips. MOTOR: She lifts both arms up about 4+. Legs, she is about 4/5. Reflexes -1 upper difficulty, difficulty getting the knees and ankles. INVESTIGATIONS: Chest x-ray negative, shows no acute process. CT scan of the head is pending. LABORATORY DATA: WBC 6.6, hemoglobin 9.8. Calcium on admission slightly elevated at 10.6, is back to normal. The patient had high lactic acid, is better. UA was negative. The patient's amylase, lipase elevated. ASSESSMENT: 1. Encephalopathy. 2. Possible pancreatitis. 3. Underlying dementia. 4. Hypertension. 5. Diabetes. 6. Dehydration. PLAN: CT scan head. JOB# [id number]
[2019-03-31 06:00] LABS: BUN - UREA NITROGEN 21 mg/dL (7-25); CALCIUM SERUM 9.7 mg/dL (8.6-10.3); CARBON DIOXIDE 23.1 mEq/L (21.0-31.0); CHLORIDE 109 mEq/L (98-107); GLUCOSE 126 mg/dL (70-105); POTASSIUM SERUM 4.1 mEq/L (3.5-5.1); SODIUM SERUM 142 mEq/L (136-145)
[2019-03-31] MEDS: INSULIN LISPRO SLIDING SCALE 100 UNITS/ML UNIT SUBQ SCH ×2 (06:35→12:32)
[2019-03-31 07:14] LABS: WHITE BLOOD COUNT 8.6 Th/cmm (4.8-10.8)
[2019-03-31 07:15] LABS: HEMATOCRIT 32.2 % (41.0-60); HEMOGLOBIN 10.5 gm/dL (12-16); MEAN CELL VOLUME 87.8 fl (81-100); MEAN CORPUSCULAR HEMOGLOBIN 28.7 pg (27.0-31.0); MEAN CORPUSCULAR HGB CONC 32.7 pg (28.0-36.0); PLATELET COUNT 261 Th/cmm (150-400); RED BLOOD COUNT 3.66 Mil/cmm (3.80-5.20); RED CELL DISTRIBUTION WIDTH 14.1 % (11.5-20.0)
[2019-03-31 07:18] LABS: EOSINOPHIL 10 % (0-5); LYMPHOCYTE 34 % (20-50); MONOCYTE 2 % (2-10); NEUTROPHILS 54 % (40-80)
--- NOTE | 2019-03-31 07:20 | GI Progress Note ---
Subjective - Review of Systems Service Date: 03/31/19 Subjective: No overnight events GI OBJECTIVE - Results Result Diagrams: 03/31/19 04:56 03/31/19 04:56 Recent Labs: Laboratory Last Values WBC 8.6 Th/cmm (4.8-10.8) 03/31/19 04:56 RBC 3.66 Mil/cmm (3.80-5.20) L 03/31/19 04:56 Hgb 10.5 gm/dL (12-16) L 03/31/19 04:56 Hct 32.2 % (41.0-60) L 03/31/19 04:56 MCV 87.8 fl (81-100) 03/31/19 04:56 MCH 28.7 pg (27.0-31.0) 03/31/19 04:56 MCHC Differential 32.7 pg (28.0-36.0) 03/31/19 04:56 RDW 14.1 % (11.5-20.0) 03/31/19 04:56 Plt Count 261 Th/cmm (150-400) 03/31/19 04:56 MPV 8.5 fl 03/31/19 04:56 Add Manual Diff YES 03/31/19 04:56 Neutrophils % 61.6 % (40.0-80.0) 03/30/19 04:10 Lymphocytes % 26.9 % (20.0-50.0) 03/30/19 04:10 Monocytes % 6.1 % (2.0-10.0) 03/30/19 04:10 Eosinophils % 4.9 % (0.0-5.0) 03/30/19 04:10 Basophils % 0.5 % (0.0-2.0) 03/30/19 04:10 Neutrophils (Manual) 51 % (40-80) 03/27/19 16:30 Lymphocytes 33 % (20-50) 03/27/19 16:30 Monocytes 4 % (2-10) 03/27/19 16:30 Eosinophils 12 % (0-5) H 03/27/19 16:30 PT 9.6 SECONDS (9.5-11.5) 03/27/19 16:45 INR 0.92 (0.5-1.4) 03/27/19 16:45 PTT (Actin FS) 25.1 SECONDS (26.0-38.0) L 03/27/19 16:45 Sodium 142 mEq/L (136-145) 03/31/19 04:56 Potassium 4.1 mEq/L (3.5-5.1) 03/31/19 04:56 Chloride 109 mEq/L (98-107) H 03/31/19 04:56 Carbon Dioxide 23.1 mEq/L (21.0-31.0) 03/31/19 04:56 Anion Gap 14.0 (7.0-16.0) 03/31/19 04:56 BUN 21 mg/dL (7-25) 03/31/19 04:56 Creatinine 1.0 mg/dL (0.6-1.2) 03/31/19 04:56 Est GFR ( Amer) TNP 03/31/19 04:56 Est GFR (Non-Af Amer) TNP 03/31/19 04:56 BUN/Creatinine Ratio 21.0 03/31/19 04:56 Glucose 126 mg/dL (70-105) H 03/31/19 04:56 POC Glucose 120 MG/DL (70 - 105) H 03/31/19 05:59 Whole Bld Lactic Acid 0.54 mmol/L (0.60-1.99) L 03/30/19 04:10 Calcium 9.7 mg/dL (8.6-10.3) 03/31/19 04:56 Total Bilirubin 0.3 mg/dL (0.3-1.0) 03/27/19 16:30 AST 11 U/L (13-39) L 03/27/19 16:30 ALT 9 U/L (7-52) 03/27/19 16:30 Alkaline Phosphatase 42 U/L (34-104) 03/27/19 16:30 Creatine Kinase 27 U/L (30-223) L 03/27/19 16:30 Troponin I 0.01 ng/mL (0.01-0.05) 03/27/19 16:30 Total Protein 7.2 gm/dL (6.0-8.3) 03/27/19 16:30 Albumin 4.0 gm/dL (3.7-5.3) 03/27/19 16:30 Globulin 3.2 gm/dL 03/27/19 16:30 Albumin/Globulin Ratio 1.3 (1.0-1.8) 03/27/19 16:30 Triglycerides 46 mg/dL (<150) 03/28/19 04:30 Cholesterol 186 mg/dL (<200) 03/28/19 04:30 LDL Cholesterol Direct 67 mg/dL (75-193) L 03/28/19 04:30 HDL Cholesterol 94 mg/dL (23-92) H 03/28/19 04:30 Amylase 115 U/L (29-103) H 03/27/19 16:45 Lipase 142 U/L (11-82) H 03/27/19 16:45 TSH 1.12 uIU/ml (0.34-5.60) 03/28/19 04:30 Urine Source MIDSTREAM 03/29/19 14:00 Urine Color YELLOW 03/29/19 14:00 Urine Clarity CLEAR (CLEAR) 03/29/19 14:00 Urine pH 6.0 (4.6 - 8.0) 03/29/19 14:00 Ur Specific [place] 1.020 (1.005-1.030) 03/29/19 14:00 Urine Protein TRACE mg/dL (NEGATIVE) 03/29/19 14:00 Urine Glucose (UA) NEGATIVE mg/dL (NEGATIVE) 03/29/19 14:00 Urine Ketones 15 mg/dL (NEGATIVE) H 03/29/19 14:00 Urine Blood NEGATIVE (NEGATIVE) 03/29/19 14:00 Urine Nitrate NEGATIVE (NEGATIVE) 03/29/19 14:00 Urine Bilirubin NEGATIVE (NEGATIVE) 03/29/19 14:00 Urine Urobilinogen 0.2 E.U./dL (0.2 - 1.0) 03/29/19 14:00 Ur Leukocyte Esterase NEGATIVE (NEGATIVE) 03/29/19 14:00 Urine RBC 0-2 /hpf (0-5) 03/29/19 14:00 Urine WBC 0-2 /hpf (0-5) 03/29/19 14:00 Ur Epithelial Cells FEW /lpf (FEW) 03/29/19 14:00 Urine Bacteria FEW /hpf (NONE SEEN) 03/29/19 14:00 - Physical Exam Vitals and I&O: Vital Signs Temp 97.4 F 03/31/19 04:00 Pulse 118 03/31/19 04:00 Resp 18 03/31/19 04:00 BP 101/58 03/31/19 04:00 Pulse Ox 98 03/31/19 04:00 Intake & Output 03/30/19 03/31/19 03/31/19 18:59 06:59 18:59 Intake Total 500 60 Balance 500 60 Weight (lbs) 46.266 kg 46.266 kg Intake: Oral 500 60 Other: # Voids 3 3 # Bowel Movements 0 Weight Source Bedscale Bedscale Active Medications: Current Medications Ascorbic Acid (Vitamin C) 500 mg PO DAILY [facility] Stop: 05/28/19 08:59 Last Admin: 03/30/19 08:23 Dose: Not Given Aspirin (Ecotrin) 81 mg PO DAILY [facility] Stop: 05/28/19 08:59 Last Admin: 03/30/19 08:23 Dose: Not Given Dextrose (D50w) 50 ml IVP PRN PRN PRN Reason: Blood Glucose less than 70 Stop: 05/27/19 17:51 Dextrose (Glutose 40%) 18.75 gm PO PRN PRN PRN Reason: Blood Glucose less than 70 Stop: 05/27/19 17:51 Docusate Sodium (Colace) 100 mg PO DAILY [facility] Stop: 05/28/19 08:59 Last Admin: 03/30/19 08:23 Dose: Not Given Donepezil HCl (Aricept) 10 mg PO HS [facility] Stop: 05/27/19 20:59 Last Admin: 03/30/19 20:08 Dose: 10 mg Ferrous Sulfate (Iron) 325 mg PO BID [facility] Stop: 05/27/19 16:59 Last Admin: 03/30/19 16:09 Dose: 325 mg Glimepiride (Amaryl) 4 mg PO DAILY [facility] Stop: 05/28/19 08:59 Last Admin: 03/30/19 08:23 Dose: Not Given Glucagon (Glucagen) 1 mg IM PRN PRN PRN Reason: Blood Glucose less than 70 Stop: 05/27/19 17:51 Ceftriaxone Sodium 1 gm/ (Sodium Chloride) 50 mls @ 100 mls/hr IV Q24HR [facility] Stop: 05/27/19 17:59 Last Admin: 03/30/19 17:00 Dose: 100 mls/hr Insulin Human Lispro (Humalog Insulin Sliding Scale) 0 units SUBQ ACHS [facility]; Protocol Stop: 05/27/19 20:59 Last Admin: 03/31/19 06:35 Dose: Not Given Levothyroxine Sodium (Synthroid) 0.025 mg PO DAILY [facility] Stop: 05/28/19 08:59 Last Admin: 03/30/19 08:23 Dose: Not Given Losartan Potassium (Cozaar) 50 mg PO DAILY [facility] Stop: 05/28/19 08:59 Last Admin: 03/30/19 08:23 Dose: Not Given Memantine (Namenda) 10 mg PO BID [facility] Stop: 05/27/19 16:59 Last Admin: 03/30/19 16:09 Dose: 10 mg Metformin HCl (Glucophage) 1,000 mg PO BID [facility] Stop: 05/27/19 16:59 Last Admin: 03/30/19 16:09 Dose: 1,000 mg Miscellaneous (Tetrabenazine [Tetrabenazine]) 0.5 mg PO DAILY [facility] Stop: 05/28/19 08:59 Multivitamins/Vitamin C (Theragran) 1 tab PO DAILY [facility] Stop: 05/28/19 08:59 Last Admin: 03/30/19 08:24 Dose: Not Given Pioglitazone HCl (Actos) 30 mg PO DAILY [facility] Stop: 05/28/19 08:59 Last Admin: 03/30/19 08:24 Dose: Not Given Simvastatin (Zocor) 10 mg PO [facility]; Protocol Stop: 05/27/19 20:59 Last Admin: 03/30/19 20:08 Dose: 10 mg General: Alert HEENT: Atraumatic Neck: Supple Cardiovascular: Regular rate Abdomen: Bowel sounds, Soft, no Tender, no Hepatomegaly, no Splenomegaly, no Distended, no Rebound, no Mass, no Guarding Skin: no Rash Assessment/Plan - Assessment Assessment: # Elevated Lipase # AMS # Sepsis This pt meets zero criteria for acute pancreatitis, and thus should not be treated as such. Ok to continue oral feeding as tolerated. Plan: - diet as tolerated - would not track lipase at this point - consider CT only if she has new abdominal pain symptoms - septic workup as per primary GI to see intermittently, please call with any questions
[2019-03-31] MEDS: Ferrous Sulfate 325 MG TAB PO SCH (08:28)
[2019-03-31] MEDS: Multivitamin Tab PO SCH (08:28)
[2019-03-31] MEDS: Levothyroxine 0.025 Mg Tab PO SCH (08:28)
--- NOTE | 2019-03-31 09:30 | Diagnostic Imaging Report ---
Head CT without intravenous contrast Indication: Altered level of consciousness Comparison: None Technique: Axial images were obtained from the vertex to the skull base without IV contrast. Coronal reconstructions were made. Total DLP: 592 , [id number] FINDINGS: Images of the brain obtained without contrast demonstrate no evidence of an acute hemorrhage. Atrophy is noted. Moderate white matter disease is noted. The ventricles and basal cisterns are patent. No mass effect or midline shift. No evidence of a skull fracture or significant focal soft tissue swelling. There is mucosal thickening of the paranasal sinuses. Atherosclerosis is noted. IMPRESSION: No evidence of an acute intracranial hemorrhage. Atrophy. Moderate supratentorial white matter disease which is nonspecific and may be due to chronic microvessel ischemia. Atherosclerotic vascular disease.
--- NOTE | 2019-03-31 12:12 | Progress Notes ---
DATE: 03/31/2019 SUBJECTIVE: The patient was seen in her room. The patient is asleep, but easily arousable. The patient is a poor historian due to medical condition. Otherwise, the patient appears to be in no acute distress. OBJECTIVE: VITAL SIGNS: Temperature 97.4, heart rate of 98, blood pressure 101/58, respirations of 18, 98% on room air. HEENT: Head is atraumatic and normocephalic. Eyes: Bilateral conjunctivae are clear. Bilateral pupils equal, round, reactive. NECK: Supple. No JVD. CARDIOVASCULAR: S1 and S2, without murmur. PULMONARY: Clear to auscultation. GASTROINTESTINAL: Soft and nontender without guarding. Positive bowel sounds. MUSCULOSKELETAL: No clubbing. No cyanosis noted. ASSESSMENT: 1. Altered mental status. 2. Dementia. 3. Hypothyroidism. 4. Hypertension. 5. Hyperlipidemia. PLAN: [facility] Per GI report, the patient is a low probability for pancreatitis and altered level of consciousness most likely due to dementia. Otherwise, we will continue to monitor and initiate discharge planning. Treatment plans were discussed with the patient's nurse. Treatment plans were discussed with Dr. Cervantes. JOB# [id number]
--- NOTE | 2019-04-02 22:12 | Discharge Summary ---
General Discharge Summary - Discharge Summary Date of Admission: 03/27/19 Admitting Diagnosis: Aloc,AMS,Elevated lactic acidosis,Hypercalcemia,Sepsis, Pancreatitis,Htn,DM. Discharge Date: 03/31/19 Discharge Diagnosis: Aloc,AMS,Elevated lactic acidosis,Hypercalcemia,Sepsis, Pancreatitis,Htn,DM. Laboratory Findings: see labs/chart. Hospital Course: DISCHARGE SUMMARY Date of Admission is 03/27/2019. Date of Discharge is 03/31/2019. ADMITTING DIAGNOSIS: ALOC, AMS, Elevated lactic acidosis, Hypercalcemia, Sepsis, Pancreatitis, Htn, DM, Dyslipidimia, Thyroid disorder and Dementia. DISCHARGE DIAGNOSIS (es): ALOC, AMS, Elevated lactic acidosis, Hypercalcemia, Sepsis, Pancreatitis, Htn, DM, Dyslipidimia, Thyroid disorder and Dementia. Patient was admitted to: Med/Surg for the following evaluations and treatment. Hospital Course and Treatment Rendered: IV Antibiotics, Lab tests, Accu- check daily, Chest x-ray, Head CT scan and Abdominal U/S, Monitor vitals, Supportive care, Fall precaution, Monitor mental status, Neurology consult, Internal medicine consult and GI consult. Adjustment of medication: IV Antibiotics. The course of hospitalization was uncomplicated and the course of the treatments was uneventful. CONSULT: Neurology consult, Internal medicine consult and GI consult. Diagnostic Study (ies): Chest x-ray, Head CT scan and Abdominal U/S. DISCHARGE CONDITION: Stable. Patient discharged to [facility]. Activity: Resume normal activity as tolerated. Diet: Resume previous diet. Medications: Please see medication reconciliation sheet. I will Follow-up with patient with in x 2 days. Discharge Instructions: Patient/Family instructed on diagnosis, follow-up, and diagnostic testing. Greater than 30 minutes was spent with patient on discharge. Treatment: IV Antibiotics, Lab tests, Accu- check daily, Chest x-ray, Head CT scan and Abdominal U/S, Monitor vitals, Supportive care, Fall precaution, Monitor mental status, Neurology consult, Internal medicine consult and GI consult. Condition at Discharge: Stable Disposition: Discharge/Transfered to [facility] Home Medications: Home Medication Medication Instructions Recorded Type Ascorbic Acid [Vitamin C] 1 tab PO DAILY 03/27/19 History Aspirin [Ecotrin] 81 mg PO DAILY 03/27/19 History Cranberry Fruit Extract [Cranberry] 1 cap PO DAILY 03/27/19 History Docusate Sodium [Colace] 1 cap PO DAILY 03/27/19 History Donepezil HCl [Aricept] 10 mg PO HS 03/27/19 History Ferrous Sulfate [Iron] 1 tab PO BID 03/27/19 History Glimepiride [Amaryl] 1 tab PO DAILY 03/27/19 History Levothyroxine Sodium [Levoxyl] 25 mcg PO DAILY 03/27/19 History Losartan Potassium [Cozaar] 1 tab PO DAILY 03/27/19 History Memantine [Namenda] 1 tab PO BID 03/27/19 History Metformin HCl [Fortamet] 1 tab PO BID 03/27/19 History Pioglitazone HCl [Actos] 1 tab PO DAILY 03/27/19 History Tetrabenazine 0.5 mg PO DAILY 03/27/19 History Ascorbic Acid [Vitamin C] 500 mg PO DAILY tab 03/31/19 Rx Aspirin EC [Ecotrin] 81 mg PO DAILY ect 03/31/19 Rx Dextrose 50% [D50w] 50 ml IVP PRN PRN syr 03/31/19 Rx Dextrose Oral Gel [Glutose 40%] 18.75 gm PO PRN PRN tube 03/31/19 Rx Docusate Sodium [Colace] 100 mg PO DAILY cap 03/31/19 Rx Donepezil Hcl [Aricept] 10 mg PO HS tab 03/31/19 Rx Ferrous Sulfate [Iron] 325 mg PO BID tab 03/31/19 Rx GLUCAGON HCl [Glucagen] 1 mg IM PRN PRN kit 03/31/19 Rx Glimepiride [Amaryl*] 4 mg PO DAILY tab 03/31/19 Rx Insulin Lispro Sliding Scale See Protocol SUBQ ACHS unit 03/31/19 Rx [humaLOG INSULIN SLIDING SCALE] Levothyroxine [Synthroid] 0.025 mg PO DAILY tab 03/31/19 Rx Losartan Potassium [Cozaar] 50 mg PO DAILY tab 03/31/19 Rx Memantine [Namenda] 10 mg PO BID tab 03/31/19 Rx Multivitamin [Theragran] 1 tab PO DAILY tab 03/31/19 Rx Pioglitazone HCl [Actos] 30 mg PO DAILY tab 03/31/19 Rx Simvastatin [Zocor] 10 mg PO HS tab 03/31/19 Rx Tetrabenazine [Tetrabenazine] 0.5 mg PO DAILY 03/31/19 Rx cefTRIAXone [Rocephin] 1 gm IV Q24HR 5 Days vial 03/31/19 Rx metFORMIN [Glucophage] 1,000 mg PO BID tab 03/31/19 Rx Inpatient Medications: Please see medication list. Activity: As Tolerated Discharge Diet: Other (Monitor diabetic low sodium diet.) Consults and Follow-Up: Faith Cervantes [Primary Care Provider] - Consulting Speciality: Neurology, Infectious Disease, GI, Other (Internal medicine consult.) Instructions: Sepsis, Adult
== END 2019-03-31 14:45 | DRG 871 ==
LOC: ER 15:39 → TELE 19:00
PROVIDERS: ADMIT Internal Medicine; ATTEND Internal Medicine
DX: A41.9 Sepsis, unspecified organism (principal); K85.90 Acute pancreatitis without necrosis or infection, unspecified; G92 Toxic encephalopathy; E83.52 Hypercalcemia; I10 Essential (primary) hypertension; E11.9 Type 2 diabetes mellitus without complications; E78.5 Hyperlipidemia, unspecified; F03.90 Unspecified dementia, unspecified severity, without behavioral disturbance, psychotic disturbance, mood disturbance, and anxiety; E86.0 Dehydration; E03.9 Hypothyroidism, unspecified; Z79.84 Long term (current) use of oral hypoglycemic drugs
CPT/HCPCS: 36415-UA; 70450-TC; 71045-TC; 76700-TC; 80048-TC; 80053-TC; 80061-TC; 81001-TC; 82150-TC; 82550-TC; 82948-90; 83605; 83690-TC; 84443-TC; 84484-TC; 85007-TC; 85025-TC; 85610-TC; 85730-TC; 93005; J0696; J7030; J7040; Z7610